=== PATIENT | male | born 2000 | race Caucasian/White ===

== ENCOUNTER 2020-05-27 03:06 | Emergency (ER) | payer OTHER ==
[~2020-05-27] VITALS: Ht 185.4 cm; Wt 82.5 kg
--- NOTE | 2020-05-27 04:40 | NUR ---
A&o x4. Answering questions appropriately. Slight slur noted, admits to drinking tonight. States he was laying in truck bed "watching the stars because my dog just " when he stumbled and fell out of truck to ground. (+) head strike, unknown LOC. Denies thinners. Small abrasion noted to back of scalp, bleeding controlled. Cleaned with saline flush. C-collar applied with [employer]IAN at bedside d/t tenderness throughout spine, states baseline tenderness at L4. (+) CSM, denies numbness/tingling in all extremities. Denies incontinence. Bed low, side rails up, call shi within reach. Girlfriend at bedside with verbal consent from pt
--- NOTE | 2020-05-27 05:15 | NUR ---
C-collar cleared by provider
--- NOTE | 2020-05-27 05:20 | NUR ---
Provider at bedside
[2020-05-27] MEDS ORDERED: METHOCARBAMOL 750 MG TABLET PO ONE (05:30)
[2020-05-27] MEDS ORDERED: METHOCARBAMOL 750 MG TABLET ONE (06:03)
[2020-05-27 06:45] VITALS: BP 106/65
== END 2020-05-27 06:47 | disposition home or self-care (01) ==
LOC: ED 04:15
DX: S16.1XXA Strain of muscle, fascia and tendon at neck level, initial encounter (principal); S29.012A Strain of muscle and tendon of back wall of thorax, initial encounter; G89.11 Acute pain due to trauma; S09.90XA Unspecified injury of head, initial encounter; G89.29 Other chronic pain; M54.5 Low back pain; W19.XXXA Unspecified fall, initial encounter; Y93.89 Activity, other specified; Y92.812 Truck as the place of occurrence of the external cause; Y99.8 Other external cause status
CPT/HCPCS: 70450; 72125; 72128; 72131; 99285